=== PATIENT | male | born 2000 | race African-American/Black ===

== ENCOUNTER → 2018-03-21 | Outpatient (CLI) | payer OTHER ==
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
== END | disposition home or self-care (01) ==
LOC: KCIC 14:44
PROVIDERS: ATTEND Family Medicine
DX: S02.2XXA Fracture of nasal bones, initial encounter for closed fracture (principal); X58.XXXA Exposure to other specified factors, initial encounter; Y93.89 Activity, other specified; Y92.89 Other specified places as the place of occurrence of the external cause; Y99.8 Other external cause status
CPT/HCPCS: 70150

== ENCOUNTER 2019-06-12 01:37 | Emergency (ER) | payer SELFPAY ==
[~2019-06-12] VITALS: Ht 190.5 cm; Wt 79.4 kg
[2019-06-12 01:50] VITALS: BP 120/80
== END 2019-06-12 02:33 | disposition left against medical advice (07) ==
LOC: ER 01:37
DX: R07.81 Pleurodynia (principal); Z53.21 Procedure and treatment not carried out due to patient leaving prior to being seen by health care provider

== ENCOUNTER 2019-06-12 15:24 | Emergency (ER) | payer SELFPAY ==
[~2019-06-12] VITALS: Ht 190.5 cm; Wt 81.6 kg
[2019-06-12 16:06] VITALS: BP 138/59
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
== END 2019-06-12 16:55 | disposition home or self-care (01) ==
LOC: ER 15:24
DX: S20.212A Contusion of left front wall of thorax, initial encounter (principal); F12.90 Cannabis use, unspecified, uncomplicated; Y08.89XA Assault by other specified means, initial encounter; Y93.89 Activity, other specified; Y92.89 Other specified places as the place of occurrence of the external cause; Y99.8 Other external cause status
CPT/HCPCS: 71101; 99284

== ENCOUNTER 2020-02-26 13:17 | Emergency (ER) | payer SELFPAY | END 2020-02-26 14:53 | disposition left against medical advice (07) | LOC: ER 13:17 | DX: N48.89 Other specified disorders of penis (principal); Z53.21 Procedure and treatment not carried out due to patient leaving prior to being seen by health care provider ==

== ENCOUNTER 2020-02-27 00:48 | Emergency (ER) | payer SELFPAY ==
[~2020-02-27] VITALS: Ht 188 cm; Wt 84.0 kg
[2020-02-27 01:09] VITALS: BP 135/59
[2020-02-27 02:15] LABS: BILIRUBIN,URINE NEGATIVE (NEG); CLARITY,URINE TURBID; COLOR,URINE YELLOW; NITRITE,URINE NEGATIVE (NEG); PROTEIN,URINE NEGATIVE (NEG-TRACE)
[2020-02-27 02:25] LABS: AMORPHOUS SEDIMENT,UR PRESENT /HPF; BACTERIA,URINE 0 /HPF (0-FEW); RBC,URINE 0 /HPF (0-2); SQUAMOUS EPITHELIAL CELL,UR OCC /LPF; WBC,URINE 0 /HPF (0-4)
--- NOTE | 2020-02-27 02:27 | PHYS DOC ---
Past Medical History Past Medical History: No Pertinent History Past Surgical History: Other Additional Past Surgical Histo: BROKEN NOSE Smoking Status: Current Every Day Smoker Alcohol Use: Occasionally Drug Use: Marijuana General Adult EDM: Chief Complaint: PENIS PROBLEM HPI: HPI: Patient is a 19 year old male who presents for evaluation of some numbness to his penis. This been progressing for the past 2 days. He states it is worse when he is erect. He is able to ejaculate without difficulty however. Upon further questioning it turns out he has been masturbating a lot. It appears it may have some desensitization due to this activity. Patient denied any penile discharge. Patient is sexually active Review of Systems: Review of Systems: Constitutional: Denies fever or chills. [] Eyes: Denies change in visual acuity. [] HENT: Denies nasal congestion or sore throat. [] Respiratory: Denies cough or shortness of breath. [] Cardiovascular: Denies chest pain or edema. [] GI: Denies abdominal pain, nausea, vomiting, bloody stools or diarrhea. [] : Denies dysuria, penile numbness, no testicular pain. [] Musculoskeletal: Denies back pain or joint pain. [] Integument: Denies rash. [] Neurologic: Denies headache, focal weakness or sensory changes. [] Endocrine: Denies polyuria or polydipsia. [] Lymphatic: Denies swollen glands. [] Psychiatric: Denies depression or anxiety. [] Heart Score: Risk Factors: Risk Factors: DM, Current or recent (<one month) smoker, HTN, HLP, family history of CAD, obesity. Risk Scores: Score 0 - 3: 2.5% MACE over next 6 weeks - Discharge Home Score 4 - 6: 20.3% MACE over next 6 weeks - Admit for Clinical Observation Score 7 - 10: 72.7% MACE over next 6 weeks - Early Invasive Strategies Allergies: Allergies: Allergies Coded Allergies Type Severity Reaction Last Updated Verified No Known Drug Allergies 06/20/13 No Physical Exam: PE: Constitutional: Well developed, well nourished, no acute distress, non-toxic appearance. [] HENT: Normocephalic, atraumatic, bilateral external ears normal, oropharynx m oist. [] Eyes: PERRL, EOMI, conjunctiva normal, no discharge. [] Neck: Normal range of motion, no tenderness. [] Cardiovascular:Heart rate regular rhythm, no murmur [] Lungs & Thorax: Bilateral breath sounds clear to auscultation [] Abdomen: Bowel sounds normal, soft, no tenderness[] Skin: Warm, dry, no erythema, no rash. [] Back: No tenderness. [] Extremities: No tenderness, no cyanosis, ROM intact, no edema. [] Neurologic: Alert and oriented X 3, normal motor function, normal sensory function, no focal deficits noted. [] Psychologic: Affect normal, judgement normal, mood normal. 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 He has good sensation to his penis currently. There is no testicular tenderness. He has good cremasteric reflex, no discharge present [] Current Patient Data: Labs: Laboratory Tests Test 02/27/20 00:52 Urine Collection Type Unknown Urine Color Yellow Urine Clarity Turbid Urine pH 7.0 (<5.0-8.0) Urine Specific Mobile 1.025 (1.000-1.030) Urine Protein Negative mg/dL (NEG-TRACE) Urine Glucose (UA) Negative mg/dL (NEG) Urine Ketones (Stick) Negative mg/dL (NEG) Urine Blood Negative (NEG) Urine Nitrite Negative (NEG) Urine Bilirubin Negative (NEG) Urine Urobilinogen Dipstick 1.0 mg/dL (0.2 mg/dL) Urine Leukocyte Esterase Negative (NEG) Urine RBC 0 /HPF (0-2) Urine WBC 0 /HPF (0-4) Urine Squamous Epithelial Cells Occ /LPF Urine Amorphous Sediment Present /HPF Urine Bacteria 0 /HPF (0-FEW) Urine Mucus Mod /LPF Vital Signs: Vital Signs Date Time Temp Pulse Resp B/P (MAP) Pulse Ox O2 Delivery O2 Flow Rate FiO2 02/27/20 01:09 98.7 60 17 135/59 (84) 99 Room Air 98.7 EKG: EKG: [] Radiology/Procedures: Radiology/Procedures: [] Course & Med Decision Making: Course & Med Decision Making Pertinent Labs and Imaging studies reviewed. (See chart for details) [] Dragon Disclaimer: Dragon Disclaimer: This electronic medical record was generated, in whole or in part, using a voice recognition dictation system. Urinalysis results are unremarkable. There is no visible discharge present. He was advised that he should reduce his masturbation to allow the skin on his penis to rest and recover. Patient likely has a desensitized penis due to multiple recent episodes of masturbation. Departure Departure Impression: Primary Impression: Numbness Additional Impression: Penis pain Disposition: HOME, SELF-CARE Condition: STABLE Referrals: NO PCP (PCP) Additional Instructions: Decrease the amount of masturbation for several days to allow the skin on your penis to rest. This may help those feelings of numbness you have been having. Should you develop any symptoms of discharge, pain with urination etc. see your doctor right away. Call and see your family doctor or urologist right away Justicifation of Admission Dx: Justifications for Admission: Justification of Admission Dx: N/A WILLARD MILLER DO Feb 27, 2020 02:26
== END 2020-02-27 02:58 | disposition home or self-care (01) ==
LOC: ER 00:48
DX: N48.89 Other specified disorders of penis (principal); R20.0 Anesthesia of skin; F17.200 Nicotine dependence, unspecified, uncomplicated; F12.90 Cannabis use, unspecified, uncomplicated; Z98.890 Other specified postprocedural states
CPT/HCPCS: 81001; 99283